=== PATIENT | female | born 1980 | race Caucasian/White ===

== ENCOUNTER 2017-01-18 12:02 | Emergency (ER) | payer MEDICAID ==
[~2017-01-18] VITALS: Ht 167.6 cm; Wt 70.0 kg
[~2017-01-18 12:02] MED LIST: AMOX500T PO; CLAR500T95 PO; OMEP20CA5 PO; PROM1SUP12 PR; PROM25TA5 PO
[2017-01-18 12:36] VITALS: BP 115/76; PULSE 68; RESP 16; TEMP 97.2; O2SAT 100
[2017-01-18] MEDS ORDERED: PANT20TA2 PO (13:37)
[2017-01-18] MEDS ORDERED: CAPS0.073 TOPICAL (13:45)
[2017-01-18] MEDS ORDERED: LIDO5DIS35 TOPICAL (13:45)
[2017-01-18] MEDS ORDERED: DIAZ2 PO (13:45)
--- NOTE | 2017-01-18 13:49 | PD ---
HPI Chief Complaint: Back/ Neck Pain or Injury Time Seen by Provider: 22:38 Travel History International Travel<30 days: No Contact w/Intl Traveler<30days: No Traveled to known affect area: No History of Present Illness HPI 36-year-old female who reports a history of peptic ulcer disease presents for evaluation of left upper back pain and spasm. She reports that 2 days ago she did some yoga. She felt like she may have "pulled a muscle" and later on in the day she began having increased pain in the left upper back. It has made it difficult for her to sleep. The pain seems to come and go at irregular times, seems to be worse when she moves or breathes sometimes. She describes it as a spasming type of pain. She did take 2 Advil which seemed to help some. She has no other complaints at this time. [facility] Past Medical History Anxiety: Yes GERD: Yes Ulcer: Yes (?) ?: Not LMP: 12/28/16 : 2 Para: 1 : 1 Past Surgical History Surgical History: No Previous Surgery Social History Alcohol Use: No Tobacco Use: No Substance Use: No Allergies-Medications (Allergen,Severity, Reaction): Coded Allergies: Aspirin (Verified Allergy, Severe, PT HAS SOME KIND OF ULCERS, 03/23/14) Codeine (Verified Allergy, Severe, FEELS FUNNY, UNPLEASANT, 03/23/14) Reported Meds & Prescriptions Reported Meds & Active Scripts Active Capsagel Maximum Strength Topical (Capsaicin) 0.075% Gel 1 Applic TOPICAL BID 10 Days Lidoderm Patch 12 HR (Lidocaine) 5% Patch 1 Patch TOPICAL DAILY PRN Remove patch after 12 hours Valium (Diazepam) 2 Mg Tab 2 Mg PO TID PRN Reported Pantoprazole (Pantoprazole Sodium) 20 Mg Tab 20 Mg PO DAILY PRN Review of Systems Except as stated in HPI: all other systems reviewed are Neg Physical Exam Narrative GENERAL: Well-developed well-nourished female in no acute distress SKIN: Warm and dry. CARDIOVASCULAR: Regular rate and rhythm. No murmur appreciated. RESPIRATORY: No accessory muscle use. Clear to auscultation. Breath sounds equal bilaterally. GASTROINTESTINAL: Abdomen soft, non-tender, nondistended. Hepatic and splenic margins not palpable. MUSCULOSKELETAL: No obvious deformities. No reproducible tenderness to palpation along the cervical thoracic or lumbar midline spine. NEUROLOGICAL: Awake and alert. No obvious cranial nerve deficits. Motor grossly within normal limits. Normal speech. Data Data Last Documented VS Vital Signs Date Time Temp Pulse Resp B/P Pulse Ox O2 Delivery O2 Flow Rate FiO2 01/18/17 12:36 97.2 68 16 115/76 100 MDM Medical Decision Making Medical Screen Exam Complete: Yes Emergency Medical Condition: Yes Medical Record Reviewed: Yes Differential Diagnosis Muscle spasm, muscle strain, herniated nucleus pulposus Narrative Course Symptoms and history are consistent with back spasm. The patient does have a history of peptic ulcer disease so we will avoid oral NSAIDs. The patient will be discharged with a short course of Valium as well as Lidoderm patches, capsaicin cream. She is stable for discharge. Diagnosis Primary Impression: Back spasm Additional Instructions: Medication as needed. Do not drive or drink alcohol when taking Valium as an May cause sedation. Avoid strenuous activity. Avoid bed rest. Gentle stretches on a daily basis. Follow-up with primary care physician in one week for recheck. Return for any emergent medical conditions. Med/Other Pt SpecificInfo: Prescription(s) given Scripts Capsaicin Topical (Capsagel Maximum Strength Topical)0.075% Gel1 Applic TOPICAL BID 10 Days Ref 0 Prov:Joon Luevano MD 01/18/17 Lidocaine Patch 12 HR (Lidoderm Patch 12 HR)5% Patch1 Patch TOPICAL DAILY PRN ( PAIN) #1 BOX Ref 0 Remove patch after 12 hours Prov:Joon Luevano MD 01/18/17 Diazepam (Valium)2 Mg Tab2 Mg PO TID PRN (SPASM) #15 TAB Ref 0 Prov:Joon Luevano MD 01/18/17 Disposition: 01 DISCHARGE HOME Condition: Stable Jose Luis Cotto Jan 18, 2017 13:49
== END 2017-01-18 13:56 | disposition home or self-care (01) ==
LOC: PHED 12:02 → PHEFT 13:56
DX: M62.830 Muscle spasm of back (principal)
CPT/HCPCS: 99283

== ENCOUNTER 2018-02-22 20:26 | Emergency (ER) | payer MEDICAID ==
[~2018-02-22] VITALS: Ht 167.6 cm; Wt 70.2 kg
[~2018-02-22 20:26] MED LIST changes: -AMOX500T PO; +CAPS0.073 TOPICAL; -CLAR500T95 PO; +DIAZ2 PO; +LIDO5DIS35 TOPICAL; -OMEP20CA5 PO; +PANT20TA2 PO; -PROM1SUP12 PR; -PROM25TA5 PO
[2018-02-22 20:31] VITALS: BP 120/69; PULSE 101; RESP 18; TEMP 98.9; O2SAT 100
[2018-02-22] MEDS ORDERED: ALPR.25 PO (23:07)
[2018-02-22] MEDS ORDERED: LEVO750T3 PO (23:07)
--- NOTE | 2018-02-22 23:27 | PD ---
HPI Chief Complaint: Respiratory Symptoms Time Seen by Provider: 23:23 Travel History International Travel<30 days: No Contact w/Intl Traveler<30days: No Traveled to known affect area: No History of Present Illness HPI The patient is a 37-year-old female that complains of cough, shortness of breath , nasal congestion and slight nausea without vomiting or diarrhea for 5 days. She states her was tested positive for the flu. She saw an urgent care center today and was put on Levaquin. Chest x-ray and flu test were not performed. She does not smoke and states that she cannot be since her has a vasectomy. She denies any pain, specifically chest pain. She denies any fever. [facility] Past Medical History Anxiety: Yes GERD: Yes Immunizations Current: Yes Ulcer: Yes (?) ?: Unknown LMP: 02/10/18 : 2 Para: 1 : 1 Social History Alcohol Use: No Tobacco Use: No Substance Use: No Allergies-Medications (Allergen,Severity, Reaction): Coded Allergies: aspirin (Unverified Allergy, Severe, PT HAS SOME KIND OF ULCERS, 02/22/18) codeine (Unverified Allergy, Severe, FEELS FUNNY, UNPLEASANT, 02/22/18) Reported Meds & Prescriptions Reported Meds & Active Scripts Active Reported Levofloxacin 750 Mg Tablet 750 Mg PO DAILY Xanax (Alprazolam) 0.25 Mg Tab 0.25 Mg PO Q6H PRN Review of Systems Except as stated in HPI: all other systems reviewed are Neg Physical Exam Narrative GENERAL: The patient is alert, oriented 3 in no respiratory distress. Her vital signs show heart rate of 101 but are otherwise normal. SKIN: Focused skin assessment warm/dry. HEAD: Atraumatic. Normocephalic. EYES: Pupils equal and round. No scleral icterus. No injection or drainage. ENT: No nasal bleeding or discharge. Mucous membranes pink and moist. NECK: Trachea midline. No JVD. There is no meningismus present. CARDIOVASCULAR: Regular rate and rhythm. No murmur appreciated. RESPIRATORY: No accessory muscle use. Diffuse widely scattered rhonchi heard bilaterally in both lung case. Breath sounds equal bilaterally. GASTROINTESTINAL: Abdomen soft, non-tender, nondistended. Hepatic and splenic margins not palpable. MUSCULOSKELETAL: No obvious deformities. No clubbing. No cyanosis. No edema. NEUROLOGICAL: Awake and alert. No obvious cranial nerve deficits. Motor grossly within normal limits. Normal speech. PSYCHIATRIC: Appropriate mood and affect; insight and judgment normal. Data Data Last Documented VS Vital Signs Date Time Temp Pulse Resp B/P (MAP) Pulse Ox O2 Delivery O2 Flow Rate FiO2 02/22/18 22:43 16 Room Air 02/22/18 20:31 98.9 101 120/69 (86) 100 Orders Orders Influenzae A/B Antigen (02/22/18 23:23) Chest, Pa & Lat (02/22/18 23:23) MDM Medical Decision Making Medical Screen Exam Complete: Yes Emergency Medical Condition: Yes Medical Record Reviewed: Yes Interpretation(s) The PA and lateral chest x-ray shows no acute disease. The influenza A/B antigen is negative for flu a and flu B antigen. Differential Diagnosis Flu syndrome, nonspecific viral syndrome, pneumonia, bronchitis Narrative Course The patient appears to have a nonspecific viral syndrome. She also has a mild bronchitis she is to increase liquid intake, rest and follow-up with the primary care physician. Diagnosis Primary Impression: Bronchitis Additional Instructions: As we discussed, the bronchitis is likely viral. Rest, increase liquids and avoidance of physical stressors is necessary. Follow-up with a primary care physician. Med/Other Pt SpecificInfo: No Change to Meds Disposition: 01 DISCHARGE HOME Condition: Stable Satinder Mancini MD Feb 22, 2018 23:27
--- NOTE | 2018-02-22 23:44 | RADRPT ---
EXAM DATE/TIME: 02/22/2018 23:25 [place] COMPARISON: No previous studies available for comparison. INDICATIONS : Short of breath and cough. MEDICAL HISTORY : None. SURGICAL HISTORY : None. ENCOUNTER: Initial ACUITY: 4 - 6 days PAIN SCORE: 0/10 LOCATION: Bilateral chest FINDINGS: PA and lateral views of the chest demonstrate the lungs to be symmetrically aerated without evidence of mass, infiltrate or effusion. The cardiomediastinal contours are unremarkable. Osseous structure s are intact. CONCLUSION: No acute disease. Xavier Zamora MD on February 22, 2018 at 23:42 Board Certified Radiologist. This report was verified electronically.
== END 2018-02-23 01:09 | disposition home or self-care (01) ==
LOC: PHED 20:26
DX: J40 Bronchitis, not specified as acute or chronic (principal); R06.02 Shortness of breath; R09.81 Nasal congestion; F41.9 Anxiety disorder, unspecified; K21.9 Gastro-esophageal reflux disease without esophagitis; Z88.5 Allergy status to narcotic agent
CPT/HCPCS: 71046; 87804; 99284